=== PATIENT | male | born 1975 | race African-American/Black ===

== ENCOUNTER → 2021-06-02 | Day surgery (SDC) | payer MEDICARE ==
[2021-05-30 10:21] LABS: BASOPHILS # (AUTO) 0.1 (0.0-0.1); BASOPHILS % 0.9 % (0.0-1.0); EOSINOPHILS # (AUTO) 0.2 (0.0-0.4); EOSINOPHILS % 2.1 % (0.0-6.0); HEMATOCRIT 41.7 % (38.2-49.6); LYMPHOCYTES # (AUTO) 2.9 (1.0-3.2); LYMPHOCYTES % 36.5 % (18.0-39.1); MEAN CORPUSCULAR HEMOGLOBIN 28.4 pg (28-32); MEAN CORPUSCULAR HGB CONC 31.2 g/dL (31-35); MEAN CORPUSCULAR VOLUME 91.2 fL (81-99); MONOCYTES # (AUTO) 0.5 (0.2-0.8); MONOCYTES % 6.6 % (4.4-11.3); NEUTROPHILS # (AUTO) 4.3 (2.1-6.9); NEUTROPHILS % 53.7 % (38.7-80.0); PLATELET COUNT 231 x10e3/uL (140-360); RED BLOOD COUNT 4.57 x10e6/uL (4.3-5.7); RED CELL DISTRIBUTION WIDTH 13.3 % (11.7-14.4)
[2021-05-30 10:35] LABS: INR 1.12; PROTHROMBIN TIME 15.2 seconds (11.9-14.5)
[2021-05-30 10:45] LABS: ANION GAP 11.6 mmol/L (8-16); CALCIUM 9.8 mg/dL (8.4-10.2); CHOL/HDL RATIO 3.2 (3.9-4.7); POTASSIUM 4.6 mmol/L (3.5-5.1)
[~2021-06-02] VITALS: Ht 167.6 cm; Wt 90.7 kg
[2021-06-02] VITALS (11 sets, daily range): BP systolic 127–179; BP diastolic 61–104
[~2021-06-02] MED LIST: ATENOLOL50 MG PO; ATORVASTATIN CA20 MG PO; ELIQUIS5 MG PO; FENTANYL CITRATE/PF 100MCG/2 ML INJ ONE; HEPARIN SOD (PORCINE) 1000 UNIT/ML 30ML ONE; HEPARIN SOD/SOD CHLORIDE 2,000 ML ONE; IOPAMIDOL 300MG/ML 100 ML INFUS..BTL IV ONE; LIDOCAINE HCL 2% LOCAL 20 ML VIAL ONE; MIDAZOLAM HCL 2 MG/2 ML VIAL ONE; Morphine 4mg Syringe 4 MG/ML INJ ONE; NITROGLYCERIN/D5W 200 MCG/ML 250 ML ONE; OXCARBAZEPINE150 MG PO; PANTOPRAZOLE SO40 MG PO; PROMETHAZINE HC25 M1 PO; SODIUM CHLORIDE 0.9% 1000ML 1,000 ML ONE
== END | disposition home or self-care (01) ==
LOC: CATH LAB 08:05
PROVIDERS: ATTEND Internal Medicine Cardiovascular Disease
DX: I70.213 Atherosclerosis of native arteries of extremities with intermittent claudication, bilateral legs (principal); Z95.820 Peripheral vascular angioplasty status with implants and grafts; I71.6 Thoracoabdominal aortic aneurysm, without rupture; R93.6 Abnormal findings on diagnostic imaging of limbs; I10 Essential (primary) hypertension; R07.2 Precordial pain; E78.00 Pure hypercholesterolemia, unspecified; Z01.812 Encounter for preprocedural laboratory examination; Z20.822 Contact with and (suspected) exposure to COVID-19; Z79.02 Long term (current) use of antithrombotics/antiplatelets; Z79.899 Other long term (current) drug therapy; Z68.32 Body mass index [BMI] 32.0-32.9, adult; Z85.841 Personal history of malignant neoplasm of brain
CPT/HCPCS: 36415; 37186; 37220; 75625; 80053; 80061; 85025; 85610; C1725; C1760; C1769 ×4; C1887; C2623; J1644; J2001; J2250; J2270; J3010; J7030; Q9967; U0002; 36247; 75716; 99152

== ENCOUNTER → 2021-11-07 | Outpatient (CLI) | payer MEDICARE ==
[~2021-11-07] MED LIST changes: -FENTANYL CITRATE/PF 100MCG/2 ML INJ ONE; -HEPARIN SOD (PORCINE) 1000 UNIT/ML 30ML ONE; -HEPARIN SOD/SOD CHLORIDE 2,000 ML ONE; -IOPAMIDOL 300MG/ML 100 ML INFUS..BTL IV ONE; +IOPAMIDOL 370 MG/ML 100 ML INFUS..BTL INJ ONE; -LIDOCAINE HCL 2% LOCAL 20 ML VIAL ONE; -MIDAZOLAM HCL 2 MG/2 ML VIAL ONE; -Morphine 4mg Syringe 4 MG/ML INJ ONE; -NITROGLYCERIN/D5W 200 MCG/ML 250 ML ONE; +SODIUM CHLORIDE 0.9% 100 ML ONE; -SODIUM CHLORIDE 0.9% 1000ML 1,000 ML ONE
[2021-11-07 14:20] LABS: CREATININE, SERUM 1.03 mg/dL (0.72-1.25)
== END ==
LOC: CT 12:51
PROVIDERS: ATTEND Internal Medicine Cardiovascular Disease
DX: I71.9 Aortic aneurysm of unspecified site, without rupture (principal)
CPT/HCPCS: 36415; 71275; 82565; 84520; J7050; Q9967